=== PATIENT | female | born 1955 | race Caucasian/White ===

== ENCOUNTER 2017-03-05 13:17 | Outpatient (CLI) | payer OTHER ==
--- NOTE | 2017-03-10 11:54 | XRAY Report ---
EXAM: THREE VIEW RIGHT ANKLE: 03/05/2017 CLINICAL INDICATION: Ankle pain. FINDINGS: AP, lateral, and oblique views of the right ankle demonstrate lateral soft tissue swelling. There is a small avulsion fracture from the lateral aspect of the cuboid, best seen on the frontal projection. No other fracture is appreciated. No joint effusion is present. IMPRESSION: Small ligamentous avulsion fracture from the lateral aspect of the cuboid. TD: 03/05/2017 17:55 [facility]
--- NOTE | 2017-03-10 11:56 | XRAY Report ---
THREE VIEW RIGHT FOOT: 03/05/2017 CLINICAL INDICATION: Pain. AP, lateral, oblique views of the right foot demonstrate no evidence of fracture or dislocation. Lateral soft tissue swelling is seen. The small avulsion fragment from the lateral cuboid seen on ankle films is not well seen on foot films. No foreign body is seen in the soft tissues. IMPRESSION: Soft tissue swelling. The small avulsion fracture seen on ankle films is not well appreciated on the foot films of the same day. TD: 03/05/2017 19:56 [facility]
== END 2017-03-05 13:18 | disposition home or self-care (01) ==
LOC: DI.S 13:17
PROVIDERS: ATTEND Nurse Practitioner Family
DX: S92.211A Displaced fracture of cuboid bone of right foot, initial encounter for closed fracture (principal)

== ENCOUNTER 2017-03-18 13:41 | Outpatient (CLI) | payer OTHER ==
--- NOTE | 2017-03-18 19:45 | Mammography Report ---
DATE OF SERVICE: 03/18/2017 DIGITAL DIAGNOSTIC BILATERAL MAMMOGRAM: 03/18/2017 CLINICAL INDICATION: Left breast pain. TECHNIQUE: Bilateral CC, MLO, implant displaced views, left true lateral view. The patient describe s the pain as diffuse through the lateral left breast. COMPARISON: 06/14/2012, 06/05/2011, 04/09/2010, 10/12/2008. FINDINGS: The breasts again demonstrate heterogeneously dense fibroglandular parenchyma bilaterally. Coarse, typically benign calcifications are present. Bilateral subpectoral implants are stable. No suspicio us masses, clustered microcalcifications, or regions of architectural distortion are identified. IMPRESSION: Benign findings. RECOMMENDATIONS: Routine annual screening unless otherwise clinically indicated. BIRADS category 2 - Benign findings. STANDARD QUALIFYING STATEMENTS 1. This examination was reviewed with the aid of Computed-Aided Detection (CAD). 2. A negative or benign imaging report should not delay biopsy if clinically suspicious findings are present. Consider surgical consultation if warranted. More than 5% of cancers are not identified by imaging. 3. Dense breasts may obscure an underlying neoplasm. TD: 03/18/2017 19:23
== END 2017-03-18 13:42 | disposition home or self-care (01) ==
LOC: DI 13:41
PROVIDERS: ATTEND Nurse Practitioner Family
DX: N64.4 Mastodynia (principal)
CPT/HCPCS: 77066

== ENCOUNTER 2020-10-13 15:29 | Outpatient (CLI) | payer OTHER | END 2020-10-13 15:30 | disposition critical access hospital (66) | LOC: EMS 15:29 | DX: R51.9 Headache, unspecified (principal); R05 Cough | CPT/HCPCS: A0425; A0427 ==

== ENCOUNTER 2020-10-13 15:51 | Emergency (ER) | payer OTHER ==
[2020-10-13] MEDS ORDERED: METOCLOPRAMIDE 10 MG/2 ML VIAL IVP STA (15:55)
[2020-10-13] MEDS ORDERED: HYDROmorphone 1 MG/ML CARPUJECT IVP STA ×2 (15:55→16:11)
--- NOTE | 2020-10-13 15:58 | ED Physician Documentation ---
PD HPI HEADACHE - Stated complaint Stated Complaint: HEADACHE - History obtained from History obtained from: Patient, EMS - Additional information Additional information: 64-year-old woman with history of migraines albeit none recently presents with sudden onset worst headache of life starting at 2:50 PM today. Reportedly her day was normal prior to that although she does not remember it. She has some repetitive questioning. States the headache is frontal and severe. No photo or phonophobia. Nauseous without vomiting. Review of Systems Unable to obtain: Confused PD PAST MEDICAL HISTORY - Allergies Allergies/Adverse Reactions: Allergies Allergy/AdvReac Type Severity Reaction Status Date / Time No Known Drug Allergies Allergy Verified 10/13/20 16:04 PD ED PE NORMAL - Vitals Vital signs reviewed: Yes - General General: Other (She appears uncomfortable with repetitive questioning, does not know where she is or how she got here.) - HEENT HEENT: PERRL, EOMI - Neck Neck: Supple, no meningeal sign, No bony TTP - Cardiac Cardiac: RRR, No murmur - Respiratory Respiratory: No respiratory distress, Clear bilaterally - Abdomen Abdomen: Normal bowel sounds, Soft, Non tender - Back Back: No CVA TTP, No spinal TTP - Neuro Neuro: No motor deficit, No sensory deficit, Normal speech Eye Opening: Spontaneous Motor: Obeys Commands Verbal: Confused GCS Score: 14 Results - Vitals Vitals: Vital Signs - 24 hr 10/13/20 10/13/20 10/13/20 15:55 16:34 17:04 Temperature 37.6 C Heart Rate 69 70 70 Respiratory 24 18 16 Rate Blood Pressure 139/86 H 138/70 H 139/88 H O2 Saturation 98 97 94 Oxygen O2 Source Room air - Rads (name of study) CT Head w angio Radiology: EMP read contemporaneously (normal) PD MEDICAL DECISION MAKING - ED course ED course: 64-year-old woman presents with sudden severe headache with confusion. She was treated with narcotics and Reglan which were ineffective. She went over for CT angiography of the head which was surprisingly and thankfully very normal. On return from CT she was administered some Haldol and had complete resolution of both the headache and the confusion. Departure - Departure Disposition: 01 Home, Self Care Clinical Impression: Confusion Migraine Qualifiers: Migraine type: with aura Status migrainosus presence: without status migrainosus Intractability: not intractable Qualified Code(s): G43.109 - Migraine with aura, not intractable, without status migrainosus Condition: Good Record reviewed to determine appropriate education?: Yes Instructions: ED Headache Migraine Comments: Definitely would not drive today. Return for new or worsening symptoms or if symptoms recur. Follow-up with your primary care physician regardless.
[2020-10-13] MEDS ORDERED: IOPAMIDOL-300 100 ML VIAL ONE (16:04)
[2020-10-13] MEDS ORDERED: IOPAMIDOL-300 100 ML VIAL IVP ONE (16:25)
[2020-10-13] MEDS ORDERED: HALOPERIDOL 5 MG/ML VIAL IVP ONE (16:31)
--- NOTE | 2020-10-13 17:02 | CT Report ---
PROCEDURE: ANGIO HEAD W/WO INDICATIONS: Worst headache of life; do not wait for labs CONTRAST: IV CONTRAST: Isovue 300 ml: 80 PO CONTRAST: *NO PO CONTRAST TECHNIQUE: Precontrast 4.5 mm thick angled axial sections acquired from the foramen magnum to the vertex. Afte r the administration of intravenous contrast, 1 mm thick sections acquired through the [place] of Will is. Postcontrast 4.5 mm thick sections then re-acquired from the foramen magnum to the vertex. 3-di mensional ezzdmtr-ffknsrjfg-oxrldasdoj (MIP) and/or volume rendering reformats were acquired of the c entral intracranial vasculature. For radiation dose reduction, the following was used: automated ex posure control, adjustment of mA and/or kV according to patient size. COMPARISON: None FINDINGS: Image quality: Excellent. Anterior circulation: Intracranial internal carotid arteries are normal in size and flow. The flow within the paired anterior cerebral arteries is normal and symmetric. The flow within the middle cer ebral arteries is normal and symmetric. The anterior communicating artery is seen. No aneurysms are seen. Posterior circulation: Visualized portions of the vertebral arteries demonstrate normal caliber, and join to form a normal appearing basilar artery. Incidental note is made of a prominent left posteri or communicating artery, with a diminutive left P1 segment. This is attributed to a type origin of the left posterior cerebral artery, which is considered to be a developmental variant of typicall y no clinical consequence. Flow within the posterior cerebral arteries is normal and symmetric. No aneurysms are seen. CSF spaces: Ventricles are normal in size and shape. Basal cisterns are patent. No extra-axial flu id collections. Brain: No midline shift. No intracranial bleeds or masses. Narayan-white matter interface appears int act. Skull and face: Calvarium and facial bones appear intact, without suspicious lesions. Sinuses: Visualized sinuses and mastoids are clear. IMPRESSION: Negative for acute hemorrhage. No significant brain abnormality can be seen for age. An intracranial aneurysm is not seen. No masses or abnormal enhancement can be seen. Reviewed by: Lance Herrera MD on 10/13/2020 4:00 PM TERRA Approved by: Lance Herrera MD on 10/13/2020 4:00 PM [facility]RE[facility] Station ID: [id number]
[2020-10-13 17:16] VITALS: BP 139/88
== END 2020-10-13 18:17 | disposition home or self-care (01) ==
LOC: EDUNIT# → ED 15:51
DX: G43.109 Migraine with aura, not intractable, without status migrainosus (principal)
CPT/HCPCS: 70496; 96374; 96375; 99281; 99284; J1170; J2765; Q9967; 80048; 85025; 85610

== ENCOUNTER 2020-10-15 11:21 | Emergency (ER) | payer OTHER ==
[2020-10-15] MEDS ORDERED: diphenhydrAMINE INJ 50 MG/ML VIAL IVP STA (11:29)
[2020-10-15] MEDS ORDERED: SODIUM CHLORIDE 0.9% 1,000 ML IV STA (11:29)
[2020-10-15] MEDS ORDERED: DROPERIDOL 5 MG/2 ML VIAL IVP STA (11:29)
--- NOTE | 2020-10-15 12:04 | ED Physician Documentation ---
History of Present Illness - Stated complaint Stated Complaint: HEADACHE - Chief complaint Chief Complaint: Neuro - History obtained from History obtained from: Patient, Family - History of Present Illness Timing: How many days ago (3) Pain level max: 10 Pain level now: 10 - Additonal information Additional information: 64-year-old female presents to the emergency department with a headache today. She states that she was seen here 3 days ago for same. States today she coughed and had a sudden onset headache again. Similar to the headache 2 days ago, but states that headache 2 days ago was worse. She states that the headache did improve over the last 2 days but never went fully away. She states that she had a a dull ache in the back of her head for the past 2 days. Patient was seen here and had a negative CT angiogram of the head. Patient does have a history of migraine headaches, but states that those usually came on gradually, not suddenly like the headaches this week. Worse with light and sound. Nothing makes it better. Has not taken anything for the pain today. Has been taking Motrin for the past 2 days. 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 : None HEENT: None Psych: None Musculoskeletal: None Derm: None - Past Surgical History Past Surgical History: No - Present Medications Home Medications: Ambulatory Orders Medication Instructions Recorded Confirmed Ondansetron Odt [Zofran] 4 mg TL Q6H PRN #10 tablet 10/15/20 Sumatriptan [Imitrex] 20 mg NS ONCE PRN #5 bottle 10/15/20 - Allergies Allergies/Adverse Reactions: Allergies Allergy/AdvReac Type Severity Reaction Status Date / Time No Known Drug Allergies Allergy Verified 10/13/20 16:04 - Social History Does the pt smoke?: No Smoking Status: Never smoker Does the pt drink ETOH?: No Does the pt have substance abuse?: No - Immunizations Immunizations are current?: Yes - POLST Patient has POLST: No PD ED PE NORMAL - Vitals Vital signs reviewed: Yes - General General: Alert and oriented X 3, No acute distress, Other (Patient appears uncomfortable, lying in a darkened room. 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, No motor deficit, No sensory deficit, Normal speech Eye Opening: Spontaneous Motor: Obeys Commands Verbal: Oriented GCS Score: 15 Results - Vitals Vitals: Vital Signs - 24 hr 10/15/20 10/15/20 10/15/20 11:23 11:57 12:27 Temperature 36.9 C Heart Rate 86 82 71 Respiratory 20 22 10 L Rate Blood Pressure 162/74 H 188/104 H 134/106 H O2 Saturation 99 98 94 10/15/20 10/15/20 13:00 13:30 Temperature Heart Rate 65 71 Respiratory 17 14 Rate Blood Pressure 169/87 H 154/86 H O2 Saturation 96 95 Oxygen O2 Source Room air - Rads (name of study) Head CT Radiology: Prelim report reviewed, EMP read contemporaneously, See rad report (No acute intracranial abnormality) PD MEDICAL DECISION MAKING - ED course Complexity details: reviewed results, re-evaluated patient, considered differential, d/w patient, d/w family ED course: Patient is a 64-year-old female who presents with a sudden onset severe headache. Similar to a headache [address] angiogram at that time. Negative head CT today. Headache resolved with migraine therapy. Patient feels much better. We'll trial her on Imitrex intranasal at home. Patient is well-appearing, nontoxic. Afebrile. No evidence of subarachnoid hemorrhage. No evidence of meningitis, encephalitis. No evidence of tumor. Recommend she follow-up with her doctor for MRI and likely neurology referral. Patient counseled regarding signs and symptoms for which I believe and urgent re-evaluation would be necessary. Patient with good understanding of and agreement to plan and is comfortable going home at this time This document was made in part using voice recognition software. While efforts are made to proofread this document, sound alike and grammatical errors may occur. Departure - Departure Disposition: 01 Home, Self Care Clinical Impression: Migraine Qualifiers: Migraine type: unspecified Status migrainosus presence: without status migrainosus Intractability: not intractable Qualified Code(s): G43.909 - Migraine, unspecified, not intractable, without status migrainosus Condition: Good Instructions: ED Headache Migraine Follow-Up: your,doctor in 1 week [Other] Prescriptions: Sumatriptan [Imitrex] 20 mg NS ONCE PRN #5 bottle PRN Reason: headache Ondansetron Odt [Zofran] 4 mg TL Q6H PRN #10 tablet PRN Reason: Nausea / Vomiting Comments: Follow up with your doctor for further care. If the headache recurs, you can try the intranasal Imitrex and see if this resolves your symptoms. Your testing does not show any acute abnormalities today. It is likely that you will require an MRI and follow-up with neurology as well. Your CT of the head and CT angiogram of the head are normal. Discharge Date/Time: 10/15/20 14:09
[2020-10-15] MEDS ORDERED: KETOROLAC 30 MG/ML VIAL IVP STA (12:37)
--- NOTE | 2020-10-15 13:11 | CT Report ---
PROCEDURE: HEAD WO INDICATIONS: sudden onset LEDBETTER TECHNIQUE: Noncontrast 4.5 mm thick angled axial sections acquired from the foramen magnum to the vertex. For r adiation dose reduction, the following was used: automated exposure control, adjustment of mA and/or kV according to patient size. COMPARISON: CT head angiogram 10/13/2020. FINDINGS: Image quality: Excellent. CSF spaces: Basal cisterns are patent. No extra-axial fluid collections. Ventricles are normal in size and shape. Brain: No intracranial hemorrhage, mass, or mass effect. Narayan-white matter interface is preserved. Skull and face: Calvarium and visualized facial bones are intact, without suspicious lesions. Sinuses: Visualized sinuses and mastoids are clear. IMPRESSION: 1. No acute intracranial abnormality. Reviewed by: Maximino Higgins MD on 10/15/2020 1:10 PM PDT Approved by: Maximino Higgins MD on 10/15/2020 1:10 PM PDT Station ID: [id number]
[2020-10-15 13:34] VITALS: BP 154/86
[2020-10-15] MEDS ORDERED: SUMAtriptan 6 MG/0.5 ML VIAL SUBQ STA (13:55)
== END 2020-10-15 14:09 | disposition home or self-care (01) ==
LOC: ED 11:21
DX: G43.909 Migraine, unspecified, not intractable, without status migrainosus (principal)
CPT/HCPCS: 70450; 96372; 96374; 96375; 99284; 99285; J1200